=== PATIENT | female | born 1950 | race Caucasian/White ===

== ENCOUNTER 2016-10-08 15:27 | Inpatient (IN) ==
[2016-10-08] MEDS ORDERED: *HR* HYDROcodone/Acet 5/325 mg TABLET PO PRN (16:32)
[2016-10-08] MEDS: Diltiazem SR (12hr) 60 MG CAPSULE PO SCH (20:48)
[2016-10-08] MEDS: *HR* HYDROcodone/Acet 5/325 mg TABLET PO PRN (20:49)
[2016-10-09] MEDS: *HR* HYDROcodone/Acet 5/325 mg TABLET PO PRN ×3 (04:32→21:21)
[2016-10-09 05:14] LABS: INR 1.2; Prothrombin Time 12.6 Seconds (9.4-12.1)
[2016-10-09 05:17] LABS: Activated Partial Thrombo Time 28.3 Seconds (26.0-36.0)
[2016-10-09 05:27] LABS: BUN/Creatinine Ratio 13 (6-26); Blood Urea Nitrogen 9 mg/dL (7-20); Carbon Dioxide 25 mEq/L (19-29); Chloride 103 mEq/L (98-109); Glucose 106 mg/dL (70-99); Osmolality,Calculated 287 (280-300); Sodium 139 mEq/L (136-145); eGFR For African Americans > 60 (> 60); eGFR For Non-African Americans > 60 (> 60)
[2016-10-09 05:36] LABS: Basophils % 0.4 %; Eosinophils # 0.5 K/mcL (0.0-0.6); Eosinophils % 4.6 %; Hematocrit 30.6 % (35.3-44.9); Hemoglobin 9.9 g/dL (11.5-15.4); Immature Granulocytes % 0.5 % (0-4); Lymphocytes # 3.8 K/mcL (0.6-4.6); Lymphocytes % 33.9 %; Mean Corpuscular HGB Conc 32.4 g/dL (31.6-35.5); Mean Corpuscular Hemoglobin 27.5 pg (28.0-33.3); Mean Platelet Volume 9.7 fL (9.4-12.4); Monocytes # 0.8 K/mcL (0.0-1.3); Monocytes % 7.1 %; Platelet Count 442 K/mcL (140-400); Red Cell Distribution Width 14.4 % (11.5-14.5); Segmented Neutrophils % 53.5 %
[2016-10-09] MEDS: Furosemide 40 MG TABLET PO SCH (08:55)
[2016-10-09] MEDS: Diltiazem SR (12hr) 60 MG CAPSULE PO SCH ×2 (08:56→21:20)
[2016-10-09] MEDS: Celecoxib 200 MG CAPSULE PO SCH (08:56)
[2016-10-09] MEDS: Aspirin Enteric Coated 325 MG Tablet PO SCH (08:56)
[2016-10-09] MEDS: Cholecalciferol (D-3) 1,000 UNIT TABLET PO SCH (08:56)
[2016-10-09] MEDS: Loratadine 10 MG TABLET PO SCH (08:56)
[2016-10-09] MEDS: (Biotin [Biotin] 1 MG) PO SCH (08:56)
--- NOTE | 2016-10-09 09:40 | Internal Med History&Physical ---
Date of Encounter: 10/09/16 Time of Encounter: 09:38 Assessment and Plan (1) S/P TKR (total knee replacement) Current visit: Yes Status: Acute PT OT to work on transfer, gait, balance endurance. Qualifiers: Laterality: left Qualified Code(s): Z96.652 - Presence of left artificial knee joint (2) HTN (hypertension) Current visit: Yes Status: Chronic Slightly elevated yesterday but normalized this morning. On Cardizem. Qualifiers: Hypertension type: essential hypertension Qualified Code(s): I10 - Essential (primary) hypertension Internal Medicine - H&P: HPI Admitted From: Intrahospital Transfer Plans for Post Hospital Care: Home History of present illness: Ms. Diaz is a 66 year old female transferred from [facility] [place] for rehabilitation. Patient underwent total left knee replacement for osteoarthritis. On today's examination she complains of mild postop pain. She denies any shortness of breath. No chest pain. She complains of mild constipation. She complains of mild swelling of the left knee. Past Med Surg Social Fam HX - Past Medical History Medical history: GERD, hyperlipidemia, hypertension, thyroid disease Psychiatric history: no psych history - Past Surgical History Surgical History: cataract, knee replacement - Social History Smoking Status: Never smoker Alcohol use: none Drug use: none Internal Medicine - H&P: Meds Aspirin [Ecotrin] 325 mg PO DAILY 10/08/16 [History] Biotin 1 mg PO DAILY 10/08/16 [History] Celecoxib [Celebrex] 200 mg PO DAILY 10/08/16 [History] Cholecalciferol (Vitamin D3) [Vitamin D] 1,000 unit PO DAILY 10/08/16 [History] Diltiazem HCl [Diltiazem 12Hr ER] 120 mg PO BID 10/08/16 [History] Furosemide [Lasix] 40 mg PO DAILY 10/08/16 [History] HYDROcodone/Acet 5/325 mg [Milfay 5-325 mg] 1 tab PO Q4H PRN 10/08/16 [History] HYDROcodone/Acet 5/325 mg [Milfay 5-325 mg] 2 tab PO Q4H PRN 10/08/16 [History] Levothyroxine [Synthroid] 50 mcg PO 0630 10/08/16 [History] Loratadine [Claritin] 10 mg PO DAILY 10/08/16 [History] Omeprazole [PriLOSEC] 20 mg PO DAILY 10/08/16 [History] Promethazine [Phenergan] 12.5 mg PO Q6HR PRN 10/08/16 [History] Tramadol HCl [Ultram] 50 mg PO Q6HR 10/08/16 [History] Allergies Ohxqsoc-Gia-Xuk Reductase Inhibitor [Statins] Allergy (Verified 10/08/16 15:48) See Comments makes hair fall out Penicillins [PCN] Adverse Reaction (Verified 10/08/16 15:48) Fainting All Systems PM: A 10-system review of systems was performed and is negative for pertinent findings except as documented above in the HPI. - Constitutional Constitutional: no chills, no fever(s), no night sweats - Cardiovascular Cardiovascular ROS IM: no chest pain, no diaphoresis, no dyspnea, no lightheadedness, no palpitations, no syncope - Respiratory Respiratory: no cough, no dyspnea, no wheezing, no excessive phlegm production - Gastrointestinal Gastrointestinal: no abdominal pain, no diarrhea, no hematemesis, no hematochezia, no melena, no nausea, no vomiting - Musculoskeletal Musculoskeletal ROS IM: joint swelling, limited range of motion, stiffness - Integumentary Integumentary IM: no rash, no unusual bruising - Neurological Neurological ROS: no confusion, no convulsions, no focal weakness, no numbness, no tingling, no tremor(s) - Constitutional Vitals: Temp Pulse Resp BP Pulse Ox 98.2 F 96 16 125/64 95 10/09/16 04:29 10/09/16 09:03 10/09/16 04:29 10/09/16 09:03 10/09/16 04:29 General appearance: Present: A&O X 3, pleasant, no acute distress - Respiratory Respiratory exam: Present: CTAB. Absent: accessory muscle use, rales, rhonchi, wheezes - Cardiovascular Cardiovascular exam: Present: RRR, +S1, +S2. Absent: diastolic murmur, gallop, rubs, systolic murmur - GI/Abdominal GI/Abdominal exam: Present: normal bowel sounds, soft, no peritoneal signs. Absent: distended, tenderness - Expanded Lower Extremities Exam Knee exam: Present: erythema, swelling, tenderness. Absent: warmth - Incison Incision: Present: clean and dry Internal Med - H&P Results - Labs CBC & Chem 7: 10/09/16 05:00 10/09/16 05:00 Labs: Short CBC 10/09/16 Range/Units 05:00 WBC 11.2 H (4.3-11.1) K/mcL Hgb 9.9 L (11.5-15.4) g/dL Hct 30.6 L (35.3-44.9) % Plt Count 442 H (140-400) K/mcL Neutrophils # 6.0 (1.6-8.9) K/mcL BMP 10/09/16 05:00 Sodium 139 Potassium 4.0 Chloride 103 Carbon Dioxide 25 BUN 9 Creatinine 0.70 Glucose 106 H Calcium 9.0
[2016-10-10 06:40] LABS: BUN/Creatinine Ratio 15 (6-26); Blood Urea Nitrogen 11 mg/dL (7-20); Calcium 9.4 mg/dL (8.6-10.8); Carbon Dioxide 26 mEq/L (19-29); Chloride 100 mEq/L (98-109); Glucose 105 mg/dL (70-99); Osmolality,Calculated 284 (280-300); Sodium 137 mEq/L (136-145); eGFR For African Americans > 60 (> 60); eGFR For Non-African Americans > 60 (> 60)
[2016-10-10 07:01] LABS: Basophils # 0.1 K/mcL (0.0-0.2); Basophils % 0.4 %; Eosinophils # 0.6 K/mcL (0.0-0.6); Eosinophils % 5.3 %; Hematocrit 30.8 % (35.3-44.9); Hemoglobin 10.1 g/dL (11.5-15.4); Immature Granulocytes % 0.5 % (0-4); Lymphocytes # 4.3 K/mcL (0.6-4.6); Lymphocytes % 37.7 %; Mean Corpuscular HGB Conc 32.8 g/dL (31.6-35.5); Mean Corpuscular Hemoglobin 27.8 pg (28.0-33.3); Mean Corpuscular Volume 84.8 fL (83.0-100.0); Mean Platelet Volume 9.5 fL (9.4-12.4); Monocytes # 0.9 K/mcL (0.0-1.3); Monocytes % 8.1 %; Neutrophils # 5.5 K/mcL (1.6-8.9); Platelet Count 493 K/mcL (140-400); Red Blood Count 3.63 M/mcL (3.82-4.97); Red Cell Distribution Width 14.2 % (11.5-14.5)
[2016-10-10] MEDS: Aspirin Enteric Coated 325 MG Tablet PO SCH (08:19)
[2016-10-10] MEDS: Celecoxib 200 MG CAPSULE PO SCH (08:19)
[2016-10-10] MEDS: Diltiazem SR (12hr) 60 MG CAPSULE PO SCH ×2 (08:19→20:23)
[2016-10-10] MEDS: Loratadine 10 MG TABLET PO SCH (08:19)
[2016-10-10] MEDS: Furosemide 40 MG TABLET PO SCH ×3 (08:19→20:23)
[2016-10-10] MEDS: Cholecalciferol (D-3) 1,000 UNIT TABLET PO SCH (08:20)
[2016-10-10] MEDS: (Biotin [Biotin] 1 MG) PO SCH (08:21)
[2016-10-10] MEDS: *HR* HYDROcodone/Acet 5/325 mg TABLET PO PRN ×3 (14:22→22:50)
--- NOTE | 2016-10-10 14:57 | Internal Med Progress Note ---
Date of Encounter: 10/10/16 Time of Encounter: 14:00 - Assessment and plan (1) S/P TKR (total knee replacement) Current Visit: Yes Status: Acute Assessment and plan: This patient starts eating well. She is 75 degrees flexion and pretty much total extension. She should do well in a short period of time. Seropositive BM she is eating fine pain control is adequate but she has a little swelling which we will address with Lasix Qualifiers: Laterality: left Qualified Code(s): Z96.652 - Presence of left artificial knee joint (2) HTN (hypertension) Current Visit: Yes Status: Chronic Assessment and plan: Blood pressure is well controlled Qualifiers: Hypertension type: essential hypertension Qualified Code(s): I10 - Essential (primary) hypertension - Time Spent With Patient less than 15 minutes - Subjective Interval history: Patient is here now for rehabilitation status post total knee replacement for osteoarthritis. - Constitutional Vitals: Temp Pulse Resp BP Pulse Ox 98.1 F 82 18 136/82 94 L 10/10/16 07:00 10/10/16 07:00 10/10/16 07:00 10/10/16 07:00 10/10/16 07:00 General appearance: Present: A&O X 3, pleasant, no acute distress - Head Head exam: Present: atraumatic, normal inspection, normocephalic - Neck Neck exam general surgery: Present: supple, trachea midline. Absent: lymphadenopathy - Respiratory Respiratory exam: Present: CTAB. Absent: accessory muscle use, rales, rhonchi, wheezes - Cardiovascular Cardiovascular exam: Present: RRR, +S1, +S2. Absent: diastolic murmur, gallop, rubs, systolic murmur Internal Medicine: Result - Labs CBC & Chem 7: 10/10/16 06:20 10/10/16 06:20 Labs: Short CBC 10/10/16 Range/Units 06:20 WBC 11.4 H (4.3-11.1) K/mcL Hgb 10.1 L (11.5-15.4) g/dL Hct 30.8 L (35.3-44.9) % Plt Count 493 H (140-400) K/mcL Neutrophils # 5.5 (1.6-8.9) K/mcL BMP 10/10/16 06:20 Sodium 137 Potassium 4.0 Chloride 100 Carbon Dioxide 26 BUN 11 Creatinine 0.72 Glucose 105 H Calcium 9.4 Lab looks reasonable - ABG Interpretation ABG results: PT/INR, D-dimer PT 12.6 Seconds (9.4-12.1) H 10/09/16 05:00 - VTE Documentation of Mechanical Device: Graduated compression elastic hosiery Consult Discharge Plan - Plan Referrals: Gael Gaines [Primary Care Provider] -
[2016-10-10] MEDS ORDERED: Furosemide 40 MG TABLET PO SCH (17:00)
[2016-10-11] MEDS: (Biotin [Biotin] 1 MG) PO SCH (07:44)
[2016-10-11] MEDS: *HR* HYDROcodone/Acet 5/325 mg TABLET PO PRN (08:00)
[2016-10-11] MEDS: Cholecalciferol (D-3) 1,000 UNIT TABLET PO SCH (08:00)
[2016-10-11] MEDS: Celecoxib 200 MG CAPSULE PO SCH (08:00)
[2016-10-11] MEDS: Loratadine 10 MG TABLET PO SCH (08:01)
[2016-10-11] MEDS: Aspirin Enteric Coated 325 MG Tablet PO SCH (08:01)
[2016-10-11] MEDS: Furosemide 40 MG TABLET PO SCH ×3 (08:02→17:15)
[2016-10-11] MEDS: Diltiazem SR (12hr) 60 MG CAPSULE PO SCH ×2 (08:02→20:02)
--- NOTE | 2016-10-11 22:29 | Internal Med Progress Note ---
Date of Encounter: 10/11/16 Time of Encounter: 22:27 - Assessment and plan (1) S/P TKR (total knee replacement) Current Visit: Yes Status: Acute Assessment and plan: This patient starts eating well. Progressing with strengthening and overall activity tolerance. She is 75 degrees flexion and pretty much total extension. She should do well in a short period of time. Seropositive BM she is eating fine pain control is adequate but she has a little swelling which we will address with Arlene Qualifiers: Laterality: left Qualified Code(s): Z96.652 - Presence of left artificial knee joint (2) HTN (hypertension) Current Visit: Yes Status: Chronic Assessment and plan: Blood pressure is well controlled Qualifiers: Hypertension type: essential hypertension Qualified Code(s): I10 - Essential (primary) hypertension - Time Spent With Patient less than 15 minutes - Subjective Interval history: No voiced complaint. Feeling better. Less pain. No shortness of breath. No chest pain. - Constitutional Vitals: Temp Pulse Resp BP Pulse Ox 98.0 F 79 16 156/73 93 L 10/11/16 18:41 10/11/16 18:41 10/11/16 07:33 10/11/16 18:41 10/11/16 18:41 General appearance: Present: A&O X 3, pleasant, no acute distress - Respiratory Respiratory exam: Present: CTAB. Absent: accessory muscle use, rales, rhonchi, wheezes - Cardiovascular Cardiovascular exam: Present: RRR, +S1, +S2. Absent: diastolic murmur, gallop, rubs, systolic murmur - GI/Abdominal GI/Abdominal exam: Present: normal bowel sounds, soft, no peritoneal signs. Absent: distended, tenderness - Expanded Lower Extremities Exam Hip exam: Present: tenderness Knee exam: Present: swelling, tenderness Gait: Present: observed and limited by pain - Incison Incision: Present: clean and dry Internal Medicine: Result - Labs CBC & Chem 7: 10/10/16 06:20 10/10/16 06:20 - ABG Interpretation ABG results: PT/INR, D-dimer PT 12.6 Seconds (9.4-12.1) H 10/09/16 05:00 - VTE Documentation of Mechanical Device: Graduated compression elastic hosiery Consult Discharge Plan - Plan Referrals: Gael Gaines [Primary Care Provider] -
[2016-10-11] MEDS: Acetaminophen 325 MG TABLET PO PRN (23:08)
[2016-10-12 06:58] VITALS: BP 176/70
[2016-10-12] MEDS: Diltiazem SR (12hr) 60 MG CAPSULE PO SCH (08:00)
[2016-10-12] MEDS: Acetaminophen 325 MG TABLET PO PRN (08:01)
[2016-10-12] MEDS: Furosemide 40 MG TABLET PO SCH (08:01)
[2016-10-12] MEDS: Celecoxib 200 MG CAPSULE PO SCH (08:01)
[2016-10-12] MEDS: Aspirin Enteric Coated 325 MG Tablet PO SCH (08:01)
[2016-10-12] MEDS: Loratadine 10 MG TABLET PO SCH (08:01)
[2016-10-12] MEDS: Cholecalciferol (D-3) 1,000 UNIT TABLET PO SCH (08:01)
[2016-10-12] MEDS: (Biotin [Biotin] 1 MG) PO SCH (08:02)
[2016-10-12] MEDS: *HR* HYDROcodone/Acet 5/325 mg TABLET PO PRN ×2 (09:42→15:13)
--- NOTE | 2016-10-12 15:29 | Discharge Summary ---
Date of Encounter: 10/12/16 Time of Encounter: 15:00 - Discharge Diagnosis (1) S/P TKR (total knee replacement) Priority: Primary Status: Acute Qualifiers: Laterality: left Qualified Code(s): Z96.652 - Presence of left artificial knee joint (2) HTN (hypertension) Priority: Secondary Status: Chronic Qualifiers: Hypertension type: essential hypertension Qualified Code(s): I10 - Essential (primary) hypertension - Discharge Medications Home Medications: Aspirin [Ecotrin] 325 mg PO DAILY 10/08/16 [History] Biotin 1 mg PO DAILY 10/08/16 [History] Celecoxib [Celebrex] 200 mg PO DAILY 10/08/16 [History] Cholecalciferol (Vitamin D3) [Vitamin D] 1,000 unit PO DAILY 10/08/16 [History] Diltiazem HCl [Diltiazem 12Hr ER] 120 mg PO BID 10/08/16 [History] Furosemide [Lasix] 40 mg PO DAILY 10/08/16 [History] HYDROcodone/Acet 5/325 mg [[place] 5-325 mg] 1 tab PO Q4H PRN 10/08/16 [History] HYDROcodone/Acet 5/325 mg [[place] 5-325 mg] 2 tab PO Q4H PRN 10/08/16 [History] Levothyroxine [Synthroid] 50 mcg PO 0630 10/08/16 [History] Loratadine [Claritin] 10 mg PO DAILY 10/08/16 [History] Omeprazole [PriLOSEC] 20 mg PO DAILY 10/08/16 [History] Promethazine [Phenergan] 12.5 mg PO Q6HR PRN 10/08/16 [History] Tramadol HCl [Ultram] 50 mg PO Q6HR 10/08/16 [History] Allergies/Adverse Reactions: Allergies [id number]-Ifv-[id number] Reductase Inhibitor [Statins] Allergy (Verified 10/08/16 15:48) See Comments makes hair fall out Penicillins [PCN] Adverse Reaction (Verified 10/08/16 15:48) Fainting Date of admission: 10/08/16 15:36 Primary care physician: Gael Gaines Consults: 10/08/16 16:05 Consult to Occupational Therapy [CONS] Routine Comment: Evaluate, develop and implement POC Consult to Physical Therapy [CONS] Routine Comment: Evaluate, develop and implement POC Consult to Recreational Therapy [CONS] Routine Comment: Evaluate, develop and implement POC Consult to [employer] [CONS] Routine Reason for SW Consult: discharge planning Discharging clinician: Osvaldo Pitts Anticipated date of discharge: 10/12/16 - Patient Status Disposition: Home, Self-Care Condition: Good Functional capacity at discharge: uses cane/walker Overall status at discharge: patient is progressing back to baseline - Discharge Instructions Follow Up With: Gael Gaines [Primary Care Provider] - Abiodun Coley MD [Non-Partnered Physician] - 11/04/16 2:15 pm - Diet and Activity Activity: as per physical therapy Diet: advance to your usual diet Interval History: Patient was brought to [facility] rehabilitation status post total knee replacement. Hospital course: Ms. Diaz is a 66 year old female This patient has done extremely well. She . She achieved all her goals and will be discharged today in the company of her . She has follow-up appointment with her surgeon and pain meds. worked with PT OT OTR - Time Spent with Patient Total time spent providing and/or coordinating discharge services: - Constitutional Vitals: Temp Pulse Resp BP Pulse Ox 98.3 F 99 18 176/70 95 10/12/16 06:57 10/12/16 06:57 10/12/16 06:57 10/12/16 06:57 10/12/16 06:57 General appearance: Present: A&O X 3, pleasant, no acute distress - Head Head exam: Present: atraumatic, normal inspection, normocephalic - Neck Neck exam general surgery: Present: supple, trachea midline. Absent: lymphadenopathy - Respiratory Respiratory exam: Present: CTAB. Absent: accessory muscle use, rales, rhonchi, wheezes - Cardiovascular Cardiovascular exam: Present: RRR, +S1, +S2. Absent: diastolic murmur, gallop, rubs, systolic murmur - VTE Documentation of Mechanical Device: Graduated compression elastic hosiery
== END 2016-10-12 15:45 | disposition home or self-care (01) | DRG 561 ==
LOC: INPGRE 15:36
PROVIDERS: ADMIT Internal Medicine; ATTEND Internal Medicine